=== PATIENT | female | born 1985 | race Caucasian/White ===

== ENCOUNTER 2024-07-10 18:02 | Emergency (ER) | payer OTHER ==
[~2024-07-10] VITALS: Ht 162.6 cm; Wt 86.2 kg
[2024-07-10 18:15] VITALS: PULSE 82; RESP 18; TEMP 98.5; O2SAT 99
[2024-07-10] MEDS: TETANUS/DIPHTHERIA TOX ADULT 0.5 ML SYR IM ONE (18:35)
== END 2024-07-10 18:45 | disposition home or self-care (01) ==
LOC: ER 18:39
DX: S00.01XA Abrasion of scalp, initial encounter (principal); W22.09XA Striking against other stationary object, initial encounter; Y92.89 Other specified places as the place of occurrence of the external cause; F43.10 Post-traumatic stress disorder, unspecified; F41.9 Anxiety disorder, unspecified
CPT/HCPCS: 90714; 99282